=== PATIENT | male | born 1980 | race Caucasian/White ===

== ENCOUNTER → 2017-03-22 | Outpatient (CLI) | payer OTHER ==
[~2017-03-22] MED LIST: GADOBUTROL 10 ML VIAL IVP ONE
== END ==
LOC: FIMAGING 12:50
PROVIDERS: ATTEND Internal Medicine Hematology & Oncology
DX: R51 Headache (principal); C62.90 Malignant neoplasm of unspecified testis, unspecified whether descended or undescended; G93.0 Cerebral cysts
CPT/HCPCS: A9585

== ENCOUNTER 2018-05-06 19:23 | Emergency (ER) | payer OTHER ==
[2018-05-06] MEDS ORDERED: SULFAMETHOX/TMP 800/160 MG 1 TAB PO ONE (20:37)
--- NOTE | 2018-05-06 20:40 | EDPHY ---
H & P Stated Complaint: STAPH INFECTION X 20 DAYS SELF TX FROM NOTI Time Seen by Provider: 05/06/18 20:22 HPI/ROS: CHIEF COMPLAINT: Left leg wound infection HISTORY OF PRESENT ILLNESS: The patient is a 37-year-old man who suffered an abrasion to his knee a month ago while he was in [facility]. He had a poorly healing wound and initially was treated with 10 days of Augmentin. His wound did not improved. He was then culture positive for MRSA and treated with 10 days of Bactrim. His wound did improve however he has been off of Bactrim for 2 days and seems to be returning. He has a ulcerated lesion to his left ford with some white eschar. Mild surrounding erythema. No obvious cellulitis. No fever. He was seen earlier today in urgent care and [facility]. They obtain blood work that revealed an elevated white count of 19 but otherwise unremarkable. Normal kidney and renal function. He also had an x-ray that did not reveal any evidence of osteomyelitis. He was given a dose of IV clindamycin and recommended that he come here for admission. Severity: Mild Modifying factors: Worsening now off antibiotics REVIEW OF SYSTEMS: Constitutional: denies: chills, fever, recent illness, recent injury EENTM: denies: blurred vision, double vision, nose congestion Respiratory: denies: cough, shortness of breath Cardiac: denies: chest pain, irregular heart rate, lightheadedness, palpitations Gastrointestinal/Abdominal: denies: abdominal pain, diarrhea, nausea, vomiting, blood streaked stools Genitourinary: denies: dysuria, frequency, hematuria, pain Musculoskeletal: denies: joint pain, muscle pain Skin: See HPI Neurological: denies: headache, numbness, paresthesia, tingling, dizziness, weakness Hematologic/Lymphatic: denies: blood clots, easy bleeding, easy bruising Immunologic/allergic: denies: HIV/AIDS, transplant 10 systems reviewed and negative except as noted EXAM: GENERAL: Well-appearing, well-nourished and in no acute distress. HEAD: Atraumatic, normocephalic. EYES: Pupils equal round and reactive to light, extraocular movements intact, sclera anicteric, conjunctiva are normal. ENT: TMs normal, nares patent, oropharynx clear without exudates. Moist mucous membranes. NECK: Normal range of motion, supple without lymphadenopathy or JVD. LUNGS: Breath sounds clear to auscultation bilaterally and equal. No wheezes rales or rhonchi. HEART: Regular rate and rhythm without murmurs, rubs or gallops. ABDOMEN: Soft, nontender, normoactive bowel sounds. No guarding, no rebound. No masses appreciated. BACK: No CVA tenderness, no spinal tenderness, step-offs or deformities EXTREMITIES: Normal range of motion, no pitting or edema. No clubbing or cyanosis. NEUROLOGICAL: Cranial nerves II through XII grossly intact. Normal speech, normal gait. 5/5 strength, normal movement in all extremities, normal sensation , normal reflexes PSYCH: Normal mood, normal affect. SKIN: Patient has a 1 cm ulcerated lesion to his left ford with whitish eschar , see HPI. Mild surrounding erythema. No obvious cellulitis. No fluctuance. No drainage. He states that he did have some serosanguineous drainage few days ago while he was on antibiotics. He is afebrile. Source: Patient Exam Limitations: No limitations - Personal History Current Tetanus Diphtheria and Acellular Pertussis (TDAP): Yes - Medical/Surgical History Hx Asthma: No Hx Chronic Respiratory Disease: No Hx Diabetes: No Hx Cardiac Disease: No Hx Renal Disease: No Hx Cirrhosis: No Hx Alcoholism: No Hx HIV/AIDS: No Hx Splenectomy or Spleen Trauma: No Other PMH: TESTICULAR CA - Family History Significant Family History: No pertinent family hx - Social History Smoking Status: Never smoked Alcohol Use: None Constitutional: Initial Vital Signs Temperature (C) 36.8 C 05/06/18 19:30 Heart Rate 105 H 05/06/18 19:30 Respiratory Rate 16 05/06/18 19:30 Blood Pressure 95/69 L 05/06/18 19:30 O2 Sat (%) 97 05/06/18 19:30 O2 Delivery Mode Room Air Allergies/Adverse Reactions: bee venom protein (honey bee) Allergy (Verified 05/06/18 19:27) Home Medications: Medication Instructions Recorded Sulfamethox/Tmp 800/160 mg 1 tab PO BID #60 tab 05/06/18 [Bactrim Ds] Medical Decision Making ED Course/Re-evaluation: The patient's wound infection is not severe. He does not have systemic symptoms. He is well appearing. Lab work done earlier today is reassuring other than a elevated white blood count. I do not think that the patient will require admission but I did offer him admission if he prefers because this is the directions he received from the outside ER. His symptoms improved previously on Bactrim however began to return when the bacitracin was finished. I believe that it longer course is indicated. We discussed symptoms to watch for that would require admission clean occluding fevers and chills lethargy and extending surrounding cellulitis. He feels comfortable with this plan. He does plan to travel to [place] this weekend but will be in a [facility] center. I will also refer him to infectious disease for follow-up. Differential Diagnosis: Partial list of the Differential diagnosis considered include but were not limited to; wound infection, cellulitis and although unlikely based on the history and physical exam, I also considered abscess, osteomyelitis. - Data Points Medications Given: Discontinued Medications Trimethoprim/Sulfamethoxazole (Bactrim Ds) 1 ea PO EDNOW ONE PRN Reason: Protocol Stop: 05/06/18 20:38 Last Admin: 05/06/18 20:47 Dose: 1 ea Departure - Departure Disposition: Home, Routine, Self-Care Clinical Impression: Wound infection Condition: Fair Instructions: MRSA (Methicillin-Resistant Staphylococcus Aureus) (ED), Wound Infection (ED) Referrals: Arjun Mckay MD [Primary Care Provider] - As per Instructions Carol Herrera MD [Medical Doctor] - 3-4 days, if not improved Prescriptions: Sulfamethox/Tmp 800/160 mg [Bactrim Ds] 1 tab PO BID #60 tab
[2018-05-06 21:04] VITALS: BP 103/73
== END 2018-05-06 21:05 | disposition home or self-care (01) ==
DX: L97.901 Non-pressure chronic ulcer of unspecified part of unspecified lower leg limited to breakdown of skin (principal); Z85.47 Personal history of malignant neoplasm of testis